=== PATIENT | female | born 1990 | race Caucasian/White ===

== ENCOUNTER 2016-04-23 21:54 | Emergency (ER) | payer OTHER ==
[~2016-04-23] VITALS: Ht 162.6 cm; Wt 58.9 kg
[2016-04-23 22:00] VITALS: TEMP 36.9; Ht 162.6 cm; Wt 58.9 kg
[2016-04-23] MEDS ORDERED: PROCHLORPERAZINE 5 MG/ML 2 ML VIAL IV STA (22:17)
[2016-04-23] MEDS ORDERED: DiphenhydrAMINE HCL 50 MG/ML VIAL IV STA (22:17)
[2016-04-23] MEDS ORDERED: BUPR8MIS SL (22:24)
[2016-04-23] MEDS ORDERED: LEVE500T13 PO (22:24)
[2016-04-23] MEDS ORDERED: SODIUM CHLORIDE 0.9% 1000ML 1,000 ML IV ONE (22:30)
[2016-04-23 22:44] LABS: MANUAL MICROSCOPIC REQUIRED? NO; URINE APPEARANCE CLEAR (CLEAR); URINE BILIRUBIN NEG (NEG); URINE COLOR YELLOW; URINE NITRITE NEG (NEG); UROBILINOGEN NEG (NEG)
[2016-04-23 22:48] LABS: HEMATOCRIT 37.9 % (37-47); MEAN CELL VOLUME 85.6 fL (80-100); MEAN CORPUSCULAR HEMOGLOBIN 29.3 pg (25-34); MEAN CORPUSCULAR HGB CONC 34.3 g/dl (32-36); MEAN PLATELET VOLUME 11.4 fL (7.4-10.4); PLATELET COUNT 198 K/uL (130-400); RED BLOOD COUNT 4.43 M/uL (4.2-5.4); WHITE BLOOD COUNT 11.73 K/uL (4.8-10.8)
[2016-04-23 22:52] LABS: REVIEW REQ? NO
[2016-04-23 22:54] LABS: ZZUR CULT IF INDIC CLEAN CATCH NO
[2016-04-23 23:08] LABS: BASO % 0.2 %; BASO ABS # 0.02 K/uL (0-0.2); COMPLETE YES; EOS % 1.3 %; IG% 0.2 %; LYMPH % 21.3 %; MONO % 5.1 %; NEUT % 71.9 %
[2016-04-23 23:14] LABS: BUN/CREATININE RATIO 11.3 (10-20); CALCIUM 8.9 mg/dl (8.5-10.1); CREATININE 0.73 mg/dl (0.60-1.20); POTASSIUM 3.9 mmol/L (3.5-5.1)
[2016-04-23 23:16] LABS: ALB/GLOB RATIO 0.8 (0.9-2)
[2016-04-23 23:19] LABS: BENZODIAZEPINE, URINE NEG (NEG); COCAINE,URINE NEG (NEG); PHENCYCLIDINE, URINE NEG (NEG)
[2016-04-24] MEDS ORDERED: SOAP SUDS ENEMA PR ONE (02:45)
[2016-04-24 03:53] VITALS: BP 115/65; PULSE 62; O2SAT 98
[2016-04-24] MEDS ORDERED: MAGNESIUM CITRATE 296 ML/BTL PO ONE (04:00)
--- NOTE | 2016-04-24 05:01 | EMERGENCY ROOM VISIT NOTE ---
History First contact with patient: 22:08 Chief Complaint: ABDOMINAL PAIN Stated Complaint: ABD PAIN,BACK PAIN Nursing Triage Summary: Pt has been staying at a motel and started getting abdominal pain. Has had nausea with no emesis. History of Present Illness The patient is a 25 year old female who presents to the Emergency Room with complaints of left-sided abdominal pain for the past one day. The patient states the pain has increased in intensity, and now includes the whole abdomen. She feels bloated and nauseated but has not vomited. She has an IUD and denies chance of . The patient states that she is traveling with friends and does not live locally. She is on daily Suboxone, and she states is normally helps her symptoms, but has not treated her pain today. The patient has a history of constipation and has not had a bowel movement in 6 or 7 days. She has not had fever or chills. No previous abdominal surgeries. She rates her discomfort an 8/10. Review of Systems More than 10 systems were reviewed and otherwise negative with the exception of history of present illness. Past Medical/Surgical History No additionally pertinent chronic medical disease Family History No pertinent family history Social History Smoking Status: Current Every Day Smoker Current/Historical Medications Scheduled Buprenorphine Hcl-Naloxone Hcl (Suboxone 8-2 Mg), 2 EA SL DAILY Levetiracetam (Keppra), 500 MG PO BID Allergies Coded Allergies: Latex (Verified Allergy, Intermediate, rash, 04/23/16) Ketorolac Tromethamine (Verified Allergy, Mild, rash, 04/23/16) Tramadol (Verified Allergy, Mild, rash, 04/23/16) Uncoded Allergies: CODINE (Allergy, Severe, ANAPHYLAXIS, 04/23/16) RISPERDOL (Allergy, Mild, Leak from Breasts, 04/23/16) Physical Exam Vital Signs Date Time Temp Pulse Resp B/P Pulse Ox O2 Delivery O2 Flow Rate FiO2 04/24/16 03:53 62 18 115/65 98 Room Air 04/24/16 01:55 69 16 112/63 93 Room Air 04/23/16 23:50 61 18 112/60 97 Room Air 04/23/16 22:00 36.9 70 16 125/73 100 Room Air Pain Rating (0-10): 2.0 Physical Exam VITALS: Vitals are noted on the nurse's note and reviewed by myself. Vital signs stable. GENERAL: Well-developed, well-nourished, white female, who is in no acute distress and resting comfortably. Patient is cooperative with the examination. HEAD: Normocephalic atraumatic. HEART: Regular rate and rhythm without murmurs gallops or rubs. LUNGS: Clear to auscultation bilaterally without wheezes, rales or rhonchi. No retractions or accessory muscle use. ABDOMEN: Positive normal bowel sounds x 4. Soft with generalized tenderness. No rebound or guarding. MUSCULOSKELETAL: No muscle atrophy, erythema, or edema noted. Full range of motion without joint tenderness in all extremities. Medical Decision & Procedures ER Provider Diagnostic Interpretation: Preliminary Findings Only See Final Report For Complete Findings CT ABDOMEN & PELVIS: Moderate to large amount of proximal colonic stool without wall thickening or pericolonic inflammatory change No bowel dilation or free air Focal area of short segment dilated small bowel in the lower central abdomen axial 51 may represent focal ileus Cystic areas suggested right ovary/adnexa measuring around 2.3 and 2 cm axial 61 versus septated complex cyst. May correlate further with pelvic ultrasound Intrauterine device appears centrally located Small nonobstructing right intrarenal stone Solid organs and gallbladder appear within limits Lung bases are clear Laboratory Results 04/23/16 22:30 Red Blood Count 4.43, Mean Corpuscular Volume 85.6, Mean Corpuscular Hemoglobin 29.3, Mean Corpuscular Hemoglobin Concent 34.3, Mean Platelet Volume 11.4, Neutrophils (%) (Auto) 71.9, Lymphocytes (%) (Auto) 21.3, Monocytes (%) (Auto) 5.1, Eosinophils (%) (Auto) 1.3, Basophils (%) (Auto) 0.2, Neutrophils # (Auto) 8.44, Lymphocytes # (Auto) 2.50, Monocytes # (Auto) 0.60, Eosinophils # (Auto) 0.15, Basophils # (Auto) 0.02 04/23/16 22:30 Test 04/23/16 22:30 04/23/16 22:32 White Blood Count 11.73 K/uL (4.8-10.8) Red Blood Count 4.43 M/uL (4.2-5.4) Hemoglobin 13.0 g/dL (12.0-16.0) Hematocrit 37.9 % (37-47) Mean Corpuscular Volume 85.6 fL (80-100) Mean Corpuscular Hemoglobin 29.3 pg (25-34) Mean Corpuscular Hemoglobin Concent 34.3 g/dl (32-36) Platelet Count 198 K/uL (130-400) Mean Platelet Volume 11.4 fL (7.4-10.4) Neutrophils (%) (Auto) 71.9 % Lymphocytes (%) (Auto) 21.3 % Monocytes (%) (Auto) 5.1 % Eosinophils (%) (Auto) 1.3 % Basophils (%) (Auto) 0.2 % Neutrophils # (Auto) 8.44 K/uL (1.4-6.5) Lymphocytes # (Auto) 2.50 K/uL (1.2-3.4) Monocytes # (Auto) 0.60 K/uL (0.11-0.59) Eosinophils # (Auto) 0.15 K/uL (0-0.5) Basophils # (Auto) 0.02 K/uL (0-0.2) RDW Standard Deviation 48.4 fL (36.4-46.3) RDW Coefficient of Variation 15.5 % (11.5-14.5) Immature Granulocyte % (Auto) 0.2 % Immature Granulocyte # (Auto) 0.02 K/uL (0.00-0.02) Red Blood Cell Morphology Unremarkable Anion Gap 13.0 mmol/L (3-11) Est Creatinine Clear Calc Drug Dose 101.8 ml/min Estimated GFR () 132.7 Estimated GFR (Non- 114.5 BUN/Creatinine Ratio 11.3 (10-20) Calcium Level 8.9 mg/dl (8.5-10.1) Total Bilirubin 0.3 mg/dl (0.2-1) Aspartate Amino Transf (AST/SGOT) 14 U/L (15-37) Alanine Aminotransferase (ALT/SGPT) 24 U/L (12-78) Alkaline Phosphatase 80 U/L (45-117) Total Protein 8.5 gm/dl (6.4-8.2) Albumin 3.9 gm/dl (3.4-5.0) Globulin 4.6 gm/dl (2.5-4.0) Albumin/Globulin Ratio 0.8 (0.9-2) Lipase 119 U/L (73-393) Urine Color YELLOW Urine Appearance CLEAR (CLEAR) Urine pH 8.0 (4.5-7.5) Urine Specific [place] 1.010 (1.000-1.030) Urine Protein NEG (NEG) Urine Glucose (UA) NEG (NEG) Urine Ketones NEG (NEG) Urine Occult Blood NEG (NEG) Urine Nitrite NEG (NEG) Urine Bilirubin NEG (NEG) Urine Urobilinogen NEG (NEG) Urine Leukocyte Esterase NEG (NEG) Urine Test NEG (NEG) Urine Opiates Screen NEG (NEG) Urine Methadone, Qualitative NEG (NEG) Urine Barbiturates NEG (NEG) Urine Phencyclidine (PCP) Level NEG (NEG) Ur Amphetamine/Methamphetamine NEG (NEG) MDMA (Ecstasy) Screen NEG (NEG) Urine Benzodiazepines Screen NEG (NEG) Urine Cocaine Metabolite NEG (NEG) Urine Marijuana (THC) NEG (NEG) Medications Administered Medications (Trade) Dose Ordered Sig/Colt Route Start Time Stop Time Status Last Admin Dose Admin Sodium Chloride (Nss 1000ml) 1,000 ml @ 999 mls/hr Q1H1M ONCE IV 04/23/16 22:30 04/23/16 23:30 DC 04/23/16 22:48 999 MLS/HR Diphenhydramine HCl (Benadryl Inj) 50 mg NOW STAT IV 04/23/16 22:17 04/23/16 22:20 DC 04/23/16 22:46 50 MG Prochlorperazine Edisylate (Compazine Inj) 10 mg NOW STAT IV 04/23/16 22:17 04/23/16 22:20 DC 04/23/16 22:48 10 MG Miscellaneous (Soap Suds Enema) 1 ea NOW ONCE AR 04/24/16 02:45 04/24/16 02:47 DC 04/24/16 02:45 1 EA ED Course Physical exam and history were performed. Nursing notes and EMR were reviewed. Patient appears to have abdominal pain for the past one day. On examination she does have some generalized abdominal tenderness. IV access was established and labs were obtained. She was hydrated with normal saline and given IV Compazine and IV Benadryl. Because of her discomfort and did elect from CT scan of the abdomen and pelvis. The patient's blood work is as above and was reviewed. She does not have a significantly elevated white blood cell count, anemia, bandemia, or gross electrolyte imbalance. Lipase and transaminases are nondiagnostic. Urine is without evidence of infection. Her drug of abuse screen was negative. The patient CT scan does show a large amount of stool, which is felt to be the likely cause of her symptoms. On reevaluation the patient was very tired and sedated, likely from her Compazine and Benadryl. She rested comfortably in her bed, and was able to sleep for several hours without any pain. As the patient woke up and became more alert, I had a lengthy discussion with her regarding her findings. We discussed options of care, and elected to perform soapsuds enema. The patient had significant relief of symptoms with the soapsuds enema. She had good output following the administration. The patient will be given a home pack of magnesium citrate that she may use if necessary. She really needs to follow with a primary care physician for further management, but does not live locally, and is not staying in this area. I suspect that much of her constipation is from being on Suboxone, and she should consider a daily stool softener. The patient was otherwise invited back to the ER with any new, worsening, or concerning symptoms. The chart was completed utilizing [employer] Voice Recognition Software. Grammatical errors, random word insertions, pronoun errors, and incomplete sentences are an occasional consequence of this system due to software limitations, ambient noise, and hardware issues. Any formal questions or concerns about the content, text, or information contained within the body of this dictation should be directly addressed to the provider for clarification. . Medical Decision Differential diagnosis: Etiologies such as appendicitis, diverticulitis, PUD, biliary pathology, UTI, pancreatitis, obstruction, mesenteric ischemia, aortic pathology, infections, inflammatory bowel disease, renal colic, as well as others were entertained. Impression Primary Impression: Constipation Additional Impression: Abdominal pain Departure Information Dispostion Home / Self-Care Condition GOOD Forms HOME CARE DOCUMENTATION FORM, IMPORTANT VISIT INFORMATION Patient Instructions My [facility] Additional Instructions You were seen and evaluated today on an emergency basis only. This is not a substitute for, or an effort to provide, complete comprehensive medical care. It is not possible to recognize and treat all injuries or illnesses in a single emergency department visit. For this reason it is recommended that you followup with your primary care physician as it is possible for recheck of your condition. Take magnesium citrate. One half the bottle now and the other half about one hour later. This will elicit a bowel movement. Make sure to drink plenty of fluids such as water or Gatorade while taking this medication. Consider a stool softener like Colace on a daily basis. You are welcome to return to the emergency department anytime with new, worsening, or concerning symptoms. Problem Qualifiers
--- NOTE | 2016-04-24 06:29 | DIAGNOSTIC IMAGING REPORT ---
ABDOMEN AND PELVIS CT WITHOUT CONTRAST CT DOSE: 259.53 mGy.cm HISTORY: Left flank pain Left side flank/mid abd pain TECHNIQUE: Multiaxial CT images of the abdomen and pelvis were performed without contrast. COMPARISON STUDY: None. FINDINGS: Lung bases are clear. Liver spleen and pancreas are unremarkable. Kidneys negative for hydronephrosis. Intrarenal glands are normal. An intrauterine device is present within anteflexed uterus. No evidence for ovarian enlargement. No free fluid within the pelvic cul-de-sac. IMPRESSION: Negative study Electronically signed by: Salo Hardy M.D. 04/24/2016 6:27 AM Dictated Date/Time: 04/24/2016 6:26 AM
== END 2016-04-24 03:58 | disposition home or self-care (01) ==
LOC: C.EDB 21:56 → C.EDA 04-24 03:58
DX: K59.00 Constipation, unspecified (principal); R10.9 Unspecified abdominal pain; Z79.899 Other long term (current) drug therapy; F17.210 Nicotine dependence, cigarettes, uncomplicated